=== PATIENT | female | born 1965 | race American Indian/Alaskan Native ===

== ENCOUNTER 2016-09-30 11:42 | Outpatient (CLI) | payer OTHER ==
[2016-09-30 12:08] LABS: Blood Urea Nitrogen 8 mg/dL (7-17)
[2016-09-30] MEDS ORDERED: NACL ONE (13:14)
--- NOTE | 2016-09-30 14:06 | Cat Scan Report ---
CT SCAN OF THE ABDOMEN AND PELVIS WITH CONTRAST: HISTORY: Upper abdominal pain. TECHNIQUE: Helical CT in 1.25mm intervals following IV contrast. Sagittal and coronal reconstructions. FINDINGS: Mild diffuse fatty infiltration is appreciated in the liver. No focal liver mass, enlargement or surface nodularity. No gallstones or biliary dilatation are noted. The spleen and pancreas demonstrate a normal size and attenuation with no evidence of abnormal mass. The kidneys are normal in size and position with no evidence of hydronephrosis or mass. The adrenal glands are normal. There is no intestinal obstruction or ascites. Normal appendix. The abdominal aorta is normal. Total hysterectomy changes are suspected. There is no evidence of peritoneal air or fluid. There is no evidence of any abnormal masses or fluid collections within the pelvis. No adenopathy is identified. The bladder is normal. IMPRESSION: Hepatic steatosis. Hysterectomy. No acute abdominal process is appreciated. No significant change since 06/01/15.
== END 2016-09-30 11:43 | disposition home or self-care (01) ==
LOC: CT 11:42
PROVIDERS: ATTEND Surgery
DX: K76.0 Fatty (change of) liver, not elsewhere classified (principal); Z90.710 Acquired absence of both cervix and uterus
CPT/HCPCS: 36415; 74177; 82565; 84520; Q9967

== ENCOUNTER 2016-10-09 08:55 | Outpatient (CLI) | payer OTHER ==
[2016-10-09] MEDS ORDERED: WATER FOR INJ (PF) IV ONE (11:00)
[2016-10-09] MEDS ORDERED: KINEVAC IV ONE (11:00)
--- NOTE | 2016-10-09 12:10 | Nuclear Medicine Report ---
Hepatobiliary scan: Examination performed with 5 mCi technetium 99m Choletec. History: Abdominal pain. Findings: Uniform distribution of activity liver with subsequent clearance into the biliary system. The gallbladder is visualized and duodenum is visualized. No persistence of activity is noted in the common bile duct and in the liver. Impression: No evidence of cystic or common bile duct obstruction. Post CCK ejection fraction 89%.
== END 2016-10-09 08:56 | disposition home or self-care (01) ==
LOC: NM 08:55
PROVIDERS: ATTEND Surgery
DX: R10.9 Unspecified abdominal pain (principal)
CPT/HCPCS: 78227; A9537; J2805